=== PATIENT | female | born 1960 | race Caucasian/White ===

== ENCOUNTER 2017-12-29 20:56 | Inpatient (IN) | payer MEDICAID ==
[~2017-12-29] VITALS: Ht 149.9 cm; Wt 94.0 kg
[2017-12-29 22:21] LABS: BASOPHILS % (AUTO) 0 % (0-1); EOSINOPHILS % (AUTO) 0.1 % (0-6); HEMATOCRIT 35.4 % (35.0-45.0); HEMOGLOBIN 12.2 g/dl (12.0-16.0); LYMPHOCYTES # (AUTO) 0.6 X10'3 (1.1-4.8); LYMPHOCYTES % (AUTO) 3.9 % (21-51); MEAN CORPUSCULAR HEMOGLOBIN 29.3 PG (27.0-31.0); MEAN CORPUSCULAR HGB CONC 34.6 % (33.0-36.5); MEAN CORPUSCULAR VOLUME 84.8 FL (78-98); MEAN PLATELET VOLUME 7.9 FL (7.4-10.4); MONOCYTES # (AUTO) 0.4 X10'3 (0-0.9); MONOCYTES % (AUTO) 2.2 % (2-12); NEUTROPHILS # (AUTO) 15.4 X10'3 (1.8-7.7); NEUTROPHILS % (AUTO) 93.8 % (42-75); PLATELET COUNT 247 X10'3 (140-440); RED BLOOD COUNT 4.17 X10'6 (4.20-5.60); RED CELL DISTRIBUTION WIDTH 18.7 % (11.5-14.5); WHITE BLOOD COUNT 16.4 X10'3 (4.5-11.0)
[2017-12-29 22:31] LABS: INR 1.2 INR; PARTIAL THROMBOPLASTIN TIME 25 SECONDS (22-32); PROTHROMBIN TIME 11.9 SECONDS (9.0-12.0)
[2017-12-29 22:37] LABS: ALANINE AMINOTRANSFERASE 54 U/L (12-78); ALBUMIN/GLOBULIN RATIO 0.9 (1.1-1.5); ALKALINE PHOSPHATASE 185 IU/L (46-116); ANION GAP 7 (8-16); ASPARTATE AMINO TRANSFERASE 73 U/L (10-37); BLOOD UREA NITROGEN 13 MG/DL (7-18); BUN/CREATININE RATIO 11.9 (6.6-38.0); CHLORIDE 109 MMOL/L (99-107); CREATININE 1.09 MG/DL (0.40-0.90); GLUCOSE 147 MG/DL (70-104); SODIUM 140 MMOL/L (135-145); TOTAL CARBON DIOXIDE 24.4 MMOL/L (24-32); TOTAL PROTEIN 6.5 G/DL (6.4-8.2); eGFR 52 ML/MIN
[2017-12-29] MEDS: potassium 10mEq/100ml NS w/LIDOcaine (10mg/bag) IV SCH (23:07)
[2017-12-30] MEDS: potassium 10mEq/100ml NS w/LIDOcaine (10mg/bag) IV SCH (00:12)
[2017-12-30 00:42] LABS: CLARITY,URINE CLEAR (Clear); COLOR,URINE YELLOW (Yellow); GLUCOSE, URINE NEGATIVE (Neg); KETONES,URINE NEGATIVE (Neg); LEUKOCYTE ESTERASE ,URINE TRACE (Neg); NITRITES, URINE NEGATIVE (Neg); OCCULT BLOOD,URINE NEGATIVE (Neg); PH,URINE 5.5 (4.8-8.0); PROTEIN,URINE NEGATIVE (Neg)
[2017-12-30 00:48] LABS: UA COLLECTION TYPE CLN CATCH MIDSTREAM
[2017-12-30 00:49] LABS: BACTERIA,URINE 2+ /HPF (Neg); RBC,URINE NONE SEEN /HPF (0-2); SQUAMOUS EPITHELIAL CELL,UR FEW /LPF (FEW); WBC,URINE 0-4 /HPF (0-4)
[2017-12-30] MEDS ORDERED: enoxaparin 100mg/ml syringe SUBCUT ONE (01:45)
[2017-12-30] MEDS ORDERED: vancomycin/NS 1 GM ADD-VANTAGE 250 ML IV ONE (01:45)
[2017-12-30] MEDS ORDERED: potassium Cl 40MEQ/NS 500ml 500 ML IV PRN ×2 (01:50)
[2017-12-30] MEDS ORDERED: mag hydrox/Alum hydrox/simeth 30ml oral suspension PO PRN (01:50)
[2017-12-30] MEDS ORDERED: potassium Cl 20 mEq SR tablet PO PRN (01:50)
[2017-12-30] MEDS ORDERED: magnesium hydroxide 30ml (MOM) UD suspension PO PRN (01:50)
[2017-12-30] MEDS ORDERED: acetaminophen 325mg tablet PO PRN ×2 (01:50)
[2017-12-30] MEDS ORDERED: LISI-600 PO (01:53)
[2017-12-30] MEDS ORDERED: POTA20PA3 PO (01:53)
[2017-12-30] MEDS ORDERED: ATOR10TA87 PO (01:53)
[2017-12-30] MEDS ORDERED: DILTIA PO (01:53)
[2017-12-30] MEDS ORDERED: WARF5TAB PO (01:53)
[2017-12-30] MEDS ORDERED: ENOX100S3 SQ (01:53)
[2017-12-30] MEDS ORDERED: SILV50CR31 TP (01:53)
[2017-12-30] MEDS ORDERED: FURO-150 PO (01:53)
[2017-12-30] MEDS ORDERED: INSU100C10 SQ (01:53)
[2017-12-30] MEDS ORDERED: MESSAGE TO PHARMACY PO ONE (02:00)
[2017-12-30] MEDS ORDERED: dextrose 50%-water 50ml dispensing syringe IV PRN ×2 (02:00)
[2017-12-30] MEDS ORDERED: dextrose ORAL solution 15 GM/59 ML bottle PO PRN ×2 (02:00)
[2017-12-30] MEDS ORDERED: glucagon, human recombinant 1mg kit SUBCUT PRN (02:00)
[2017-12-30] MEDS ORDERED: insulin Lispro (HumaLOG) vial - multi-dose SQ SCH (02:00)
[2017-12-30] MEDS ORDERED: COU4T PO (02:30)
[2017-12-30] MEDS ORDERED: ASPI-1265 PO (02:30)
[2017-12-30] MEDS ORDERED: INSU100V5 IJ (02:31)
[2017-12-30] MEDS: normal saline 1000ml 1,000 ML IV SCH ×2 (02:48→16:26)
[2017-12-30] MEDS: piperacillin/tazo 3.375gm/50ml 50 ML IV SCH ×4 (02:48→20:13)
[2017-12-30 03:20] VITALS: BP 119/71
[2017-12-30] MEDS: ipratropium/albuterol 3ml nebule NEB PRN ×2 (03:37→09:49)
[2017-12-30 04:41] LABS: MAGNESIUM 1.9 MG/DL (1.5-2.4); POTASSIUM 3.4 MMOL/L (3.5-5.1)
[2017-12-30] MEDS: morphine 4 MG/ML inj SYRINge IV PRN ×2 (05:15→23:30)
[2017-12-30 06:00] VITALS: BP 97/52
[2017-12-30] MEDS: ondansetron/PF 4mg/2ml inj IV PRN (06:55)
[2017-12-30] MEDS: furosemide 20MG tablet PO SCH (08:00)
[2017-12-30] MEDS: [UNRECOGNIZED DRUG - OTHER] IV SCH (08:28)
[2017-12-30] MEDS: aspirin 81mg tab.chew PO SCH (08:47)
[2017-12-30] MEDS: potassium Cl 20 mEq SR tablet PO SCH (08:47)
[2017-12-30] MEDS: potassium Cl 20 mEq SR tablet PO PRN ×3 (08:47→20:13)
[2017-12-30 09:24] VITALS: BP 91/37
[2017-12-30 10:00] VITALS: BP 92/56
[2017-12-30] MEDS ORDERED: TREP1VIA (15:26)
[2017-12-30] MEDS: vancomycin inj 1,250 MG in normal saline 250ml IV soln 250 ML IV SCH (16:26)
[2017-12-30] MEDS ORDERED: [UNRECOGNIZED DRUG - CODE] IV (16:27)
[2017-12-30 18:00] VITALS: BP 128/83
[2017-12-30] MEDS: lactobacillus rhamnosus 10,000 MMU CELLS/CAPSULE PO SCH (20:13)
[2017-12-30] MEDS: atorvastatin 10mg tablet PO SCH (20:14)
[2017-12-30] MEDS: nystatin 15 GM powder TP SCH (20:25)
[2017-12-30] MEDS: insulin glargine (Lantus) pen - multi-dose SQ SCH (21:00)
[2017-12-30] MEDS ORDERED: warfarin 5mg tablet PO ONE (21:00)
[2017-12-30 22:00] VITALS: BP 130/79
[2017-12-31] MEDS: piperacillin/tazo 3.375gm/50ml 50 ML IV SCH ×4 (02:01→20:06)
[2017-12-31] MEDS: vancomycin inj 1,250 MG in normal saline 250ml IV soln 250 ML IV SCH ×2 (03:09→15:21)
[2017-12-31] MEDS: normal saline 1000ml 1,000 ML IV SCH ×2 (04:26→10:45)
[2017-12-31] MEDS: ipratropium/albuterol 3ml nebule NEB PRN (04:36)
[2017-12-31 05:07] LABS: BASOPHILS % (AUTO) 0.1 % (0-1); EOSINOPHILS # (AUTO) 0.2 X10'3 (0-0.9); EOSINOPHILS % (AUTO) 2.4 % (0-6); HEMATOCRIT 32.4 % (35.0-45.0); HEMOGLOBIN 10.9 g/dl (12.0-16.0); LYMPHOCYTES % (AUTO) 21.6 % (21-51); MEAN CORPUSCULAR HEMOGLOBIN 29.4 PG (27.0-31.0); MEAN CORPUSCULAR HGB CONC 33.5 % (33.0-36.5); MEAN CORPUSCULAR VOLUME 87.6 FL (78-98); MEAN PLATELET VOLUME 8.1 FL (7.4-10.4); MONOCYTES # (AUTO) 0.6 X10'3 (0-0.9); MONOCYTES % (AUTO) 5.9 % (2-12); NEUTROPHILS # (AUTO) 6.6 X10'3 (1.8-7.7); PLATELET COUNT 207 X10'3 (140-440); RED CELL DISTRIBUTION WIDTH 19.7 % (11.5-14.5); WHITE BLOOD COUNT 9.5 X10'3 (4.5-11.0)
[2017-12-31 05:11] LABS: INR 1.2 INR; PROTHROMBIN TIME 12.3 SECONDS (9.0-12.0)
[2017-12-31 05:12] LABS: ALBUMIN 2.7 G/DL (3.4-5.0); ANION GAP 4 (8-16); BLOOD UREA NITROGEN 10 MG/DL (7-18); BUN/CREATININE RATIO 10.8 (6.6-38.0); CALCIUM 8.5 MG/DL (8.5-10.1); CHLORIDE 108 MMOL/L (99-107); CREATININE 0.93 MG/DL (0.40-0.90); GLUCOSE 115 MG/DL (70-104); MAGNESIUM 1.9 MG/DL (1.5-2.4); POTASSIUM 4.2 MMOL/L (3.5-5.1); SODIUM 138 MMOL/L (135-145); TOTAL CARBON DIOXIDE 25.8 MMOL/L (24-32); eGFR 62 ML/MIN
[2017-12-31 07:00] VITALS: BP 115/76
[2017-12-31] MEDS: aspirin 81mg tab.chew PO SCH (07:24)
[2017-12-31] MEDS: lactobacillus rhamnosus 10,000 MMU CELLS/CAPSULE PO SCH ×2 (07:24→20:06)
[2017-12-31] MEDS: furosemide 20MG tablet PO SCH (07:24)
[2017-12-31] MEDS: nystatin 15 GM powder TP SCH ×3 (07:25→21:00)
[2017-12-31] MEDS: potassium Cl 20 mEq SR tablet PO SCH (07:25)
[2017-12-31 10:00] VITALS: BP 88/53
[2017-12-31] MEDS: [UNRECOGNIZED DRUG - OTHER] IV SCH (10:38)
[2017-12-31] MEDS: ondansetron/PF 4mg/2ml inj IV PRN (14:39)
[2017-12-31 18:00] VITALS: BP 103/62
[2017-12-31] MEDS: atorvastatin 10mg tablet PO SCH (20:06)
[2017-12-31] MEDS: morphine 4 MG/ML inj SYRINge IV PRN (20:07)
[2017-12-31] MEDS ORDERED: warfarin 7.5mg tablet PO ONE (21:00)
[2017-12-31] MEDS: insulin glargine (Lantus) pen - multi-dose SQ SCH (21:00)
[2017-12-31 22:00] VITALS: BP 110/74
[2018-01-01] MEDS: Melatonin 3mg tablet PO PRN (00:36)
[2018-01-01] MEDS: piperacillin/tazo 3.375gm/50ml 50 ML IV SCH ×4 (02:19→20:40)
[2018-01-01] MEDS ORDERED: VANCOMYCIN LEVEL IV NR (02:30)
[2018-01-01] MEDS: vancomycin inj 1,250 MG in normal saline 250ml IV soln 250 ML IV SCH ×2 (03:13→16:32)
[2018-01-01] MEDS: normal saline 1000ml 1,000 ML IV SCH ×2 (03:17→20:50)
[2018-01-01 04:44] LABS: BASOPHILS % (AUTO) 0.1 % (0-1); EOSINOPHILS # (AUTO) 0.2 X10'3 (0-0.9); EOSINOPHILS % (AUTO) 1.8 % (0-6); HEMATOCRIT 32.8 % (35.0-45.0); HEMOGLOBIN 10.9 g/dl (12.0-16.0); LYMPHOCYTES # (AUTO) 1.6 X10'3 (1.1-4.8); LYMPHOCYTES % (AUTO) 17.1 % (21-51); MEAN CORPUSCULAR HEMOGLOBIN 29.1 PG (27.0-31.0); MEAN CORPUSCULAR HGB CONC 33.3 % (33.0-36.5); MEAN CORPUSCULAR VOLUME 87.3 FL (78-98); MEAN PLATELET VOLUME 8.5 FL (7.4-10.4); MONOCYTES # (AUTO) 0.3 X10'3 (0-0.9); MONOCYTES % (AUTO) 3.8 % (2-12); NEUTROPHILS # (AUTO) 7.1 X10'3 (1.8-7.7); NEUTROPHILS % (AUTO) 77.2 % (42-75); PLATELET COUNT 207 X10'3 (140-440); RED BLOOD COUNT 3.76 X10'6 (4.20-5.60); RED CELL DISTRIBUTION WIDTH 19.5 % (11.5-14.5); WHITE BLOOD COUNT 9.2 X10'3 (4.5-11.0)
[2018-01-01 05:04] LABS: INR 1.1 INR; PROTHROMBIN TIME 11.7 SECONDS (9.0-12.0)
[2018-01-01 05:15] LABS: ALBUMIN 2.8 G/DL (3.4-5.0); ANION GAP 5 (8-16); BLOOD UREA NITROGEN 12 MG/DL (7-18); BUN/CREATININE RATIO 11.4 (6.6-38.0); CALCIUM 8.6 MG/DL (8.5-10.1); CHLORIDE 106 MMOL/L (99-107); CREATININE 1.05 MG/DL (0.40-0.90); GLUCOSE 96 MG/DL (70-104); MAGNESIUM 1.8 MG/DL (1.5-2.4); POTASSIUM 3.9 MMOL/L (3.5-5.1); SODIUM 138 MMOL/L (135-145); TOTAL CARBON DIOXIDE 27.3 MMOL/L (24-32); VANCOMYCIN,TROUGH 18.9 UG/ML (6.0-14.0); eGFR 54 ML/MIN
[2018-01-01 06:30] VITALS: BP 97/64
[2018-01-01] MEDS: nystatin 15 GM powder TP SCH ×3 (08:00→20:40)
[2018-01-01] MEDS: furosemide 20MG tablet PO SCH (08:00)
[2018-01-01] MEDS: lactobacillus rhamnosus 10,000 MMU CELLS/CAPSULE PO SCH ×2 (08:28→20:40)
[2018-01-01] MEDS: aspirin 81mg tab.chew PO SCH (08:28)
[2018-01-01] MEDS: potassium Cl 20 mEq SR tablet PO SCH (08:28)
[2018-01-01] MEDS: [UNRECOGNIZED DRUG - OTHER] IV SCH (08:28)
[2018-01-01 10:24] VITALS: BP 93/58
[2018-01-01] MEDS: morphine 4 MG/ML inj SYRINge IV PRN ×2 (16:32→20:41)
[2018-01-01 18:49] VITALS: BP 103/66
[2018-01-01] MEDS: atorvastatin 10mg tablet PO SCH (20:39)
[2018-01-01] MEDS: insulin glargine (Lantus) pen - multi-dose SQ SCH (20:50)
[2018-01-01] MEDS ORDERED: warfarin 3mg tablet PO ONE (21:00)
[2018-01-01 23:30] VITALS: BP 96/56
[2018-01-02] MEDS: morphine 4 MG/ML inj SYRINge IV PRN ×3 (01:04→19:16)
[2018-01-02] MEDS: piperacillin/tazo 3.375gm/50ml 50 ML IV SCH ×4 (01:05→21:23)
[2018-01-02] MEDS: vancomycin inj 1,250 MG in normal saline 250ml IV soln 250 ML IV SCH ×2 (02:57→17:34)
[2018-01-02 05:30] VITALS: BP 90/52
[2018-01-02 05:56] LABS: BASOPHILS % (AUTO) 0.4 % (0-1); EOSINOPHILS # (AUTO) 0.2 X10'3 (0-0.9); EOSINOPHILS % (AUTO) 2.7 % (0-6); HEMATOCRIT 32.5 % (35.0-45.0); HEMOGLOBIN 10.9 g/dl (12.0-16.0); LYMPHOCYTES # (AUTO) 1.9 X10'3 (1.1-4.8); LYMPHOCYTES % (AUTO) 28.2 % (21-51); MEAN CORPUSCULAR HGB CONC 33.7 % (33.0-36.5); MEAN CORPUSCULAR VOLUME 86.3 FL (78-98); MEAN PLATELET VOLUME 8.6 FL (7.4-10.4); MONOCYTES # (AUTO) 0.2 X10'3 (0-0.9); MONOCYTES % (AUTO) 3.7 % (2-12); NEUTROPHILS # (AUTO) 4.3 X10'3 (1.8-7.7); PLATELET COUNT 179 X10'3 (140-440); RED BLOOD COUNT 3.76 X10'6 (4.20-5.60); RED CELL DISTRIBUTION WIDTH 19.1 % (11.5-14.5); WHITE BLOOD COUNT 6.6 X10'3 (4.5-11.0)
[2018-01-02 05:59] LABS: INR 1.3 INR; PROTHROMBIN TIME 13.1 SECONDS (9.0-12.0)
[2018-01-02 06:06] LABS: ALBUMIN 2.8 G/DL (3.4-5.0); ANION GAP 6 (8-16); BLOOD UREA NITROGEN 9 MG/DL (7-18); BUN/CREATININE RATIO 10.1 (6.6-38.0); CALCIUM 8.6 MG/DL (8.5-10.1); CHLORIDE 107 MMOL/L (99-107); CREATININE 0.89 MG/DL (0.40-0.90); GLUCOSE 94 MG/DL (70-104); MAGNESIUM 1.9 MG/DL (1.5-2.4); SODIUM 139 MMOL/L (135-145); TOTAL CARBON DIOXIDE 26.1 MMOL/L (24-32); eGFR 66 ML/MIN
[2018-01-02] MEDS: [UNRECOGNIZED DRUG - OTHER] IV SCH (08:00)
[2018-01-02] MEDS: furosemide 20MG tablet PO SCH (08:04)
[2018-01-02] MEDS: nystatin 15 GM powder TP SCH ×3 (08:04→21:36)
[2018-01-02] MEDS: lactobacillus rhamnosus 10,000 MMU CELLS/CAPSULE PO SCH ×2 (08:04→21:23)
[2018-01-02] MEDS: potassium Cl 20 mEq SR tablet PO SCH (08:04)
[2018-01-02] MEDS: aspirin 81mg tab.chew PO SCH (08:04)
[2018-01-02 10:30] VITALS: BP 99/61
[2018-01-02 18:00] VITALS: BP 119/77
[2018-01-02] MEDS: insulin glargine (Lantus) pen - multi-dose SQ SCH (21:00)
[2018-01-02] MEDS ORDERED: warfarin 5mg tablet PO ONE (21:00)
[2018-01-02] MEDS: atorvastatin 10mg tablet PO SCH (21:22)
[2018-01-02] MEDS: Melatonin 3mg tablet PO PRN (21:38)
[2018-01-02 22:00] VITALS: BP 103/60
[2018-01-03] MEDS: morphine 4 MG/ML inj SYRINge IV PRN ×2 (01:42→21:09)
[2018-01-03] MEDS: piperacillin/tazo 3.375gm/50ml 50 ML IV SCH ×4 (01:42→21:08)
[2018-01-03] MEDS: vancomycin inj 1,250 MG in normal saline 250ml IV soln 250 ML IV SCH ×2 (02:36→17:04)
[2018-01-03 06:10] LABS: BASOPHILS % (AUTO) 0.3 % (0-1); EOSINOPHILS # (AUTO) 0.2 X10'3 (0-0.9); EOSINOPHILS % (AUTO) 3.2 % (0-6); HEMATOCRIT 32.2 % (35.0-45.0); HEMOGLOBIN 10.7 g/dl (12.0-16.0); LYMPHOCYTES # (AUTO) 1.9 X10'3 (1.1-4.8); LYMPHOCYTES % (AUTO) 26.8 % (21-51); MEAN CORPUSCULAR HEMOGLOBIN 28.8 PG (27.0-31.0); MEAN CORPUSCULAR HGB CONC 33.2 % (33.0-36.5); MEAN PLATELET VOLUME 8.1 FL (7.4-10.4); MONOCYTES # (AUTO) 0.6 X10'3 (0-0.9); MONOCYTES % (AUTO) 8.1 % (2-12); NEUTROPHILS # (AUTO) 4.3 X10'3 (1.8-7.7); NEUTROPHILS % (AUTO) 61.6 % (42-75); PLATELET COUNT 193 X10'3 (140-440); RED CELL DISTRIBUTION WIDTH 18.9 % (11.5-14.5)
[2018-01-03 06:18] LABS: INR 1.4 INR; PROTHROMBIN TIME 14.4 SECONDS (9.0-12.0)
[2018-01-03 06:24] LABS: ALBUMIN 2.6 G/DL (3.4-5.0); ANION GAP 7 (8-16); BLOOD UREA NITROGEN 13 MG/DL (7-18); CALCIUM 8.9 MG/DL (8.5-10.1); CHLORIDE 107 MMOL/L (99-107); CREATININE 0.93 MG/DL (0.40-0.90); GLUCOSE 101 MG/DL (70-104); MAGNESIUM 1.9 MG/DL (1.5-2.4); POTASSIUM 3.7 MMOL/L (3.5-5.1); SODIUM 142 MMOL/L (135-145); TOTAL CARBON DIOXIDE 28.5 MMOL/L (24-32); eGFR 62 ML/MIN
[2018-01-03] MEDS: nystatin 15 GM powder TP SCH ×3 (08:00→21:19)
[2018-01-03] MEDS: [UNRECOGNIZED DRUG - OTHER] IV SCH (08:00)
[2018-01-03] MEDS: lactobacillus rhamnosus 10,000 MMU CELLS/CAPSULE PO SCH ×2 (09:54→21:09)
[2018-01-03] MEDS: furosemide 20MG tablet PO SCH (09:54)
[2018-01-03] MEDS: aspirin 81mg tab.chew PO SCH (09:54)
[2018-01-03] MEDS: potassium Cl 20 mEq SR tablet PO SCH (09:55)
[2018-01-03 18:00] VITALS: BP 134/85
[2018-01-03] MEDS ORDERED: warfarin 10mg tablet PO ONE (21:00)
[2018-01-03] MEDS: insulin glargine (Lantus) pen - multi-dose SQ SCH (21:00)
[2018-01-03] MEDS: atorvastatin 10mg tablet PO SCH (21:10)
[2018-01-03 22:00] VITALS: BP 136/85
[2018-01-03] MEDS: Melatonin 3mg tablet PO PRN (23:35)
[2018-01-04] MEDS: piperacillin/tazo 3.375gm/50ml 50 ML IV SCH ×2 (02:23→07:46)
[2018-01-04] MEDS: vancomycin inj 1,250 MG in normal saline 250ml IV soln 250 ML IV SCH (03:06)
[2018-01-04] MEDS: morphine 4 MG/ML inj SYRINge IV PRN (04:21)
[2018-01-04 05:00] VITALS: BP 108/53
[2018-01-04 06:49] LABS: BASOPHILS % (AUTO) 0.3 % (0-1); EOSINOPHILS # (AUTO) 0.3 X10'3 (0-0.9); EOSINOPHILS % (AUTO) 3.8 % (0-6); HEMATOCRIT 36.8 % (35.0-45.0); HEMOGLOBIN 12.4 g/dl (12.0-16.0); LYMPHOCYTES # (AUTO) 1.7 X10'3 (1.1-4.8); LYMPHOCYTES % (AUTO) 24.3 % (21-51); MEAN CORPUSCULAR HEMOGLOBIN 28.9 PG (27.0-31.0); MEAN CORPUSCULAR HGB CONC 33.6 % (33.0-36.5); MEAN CORPUSCULAR VOLUME 85.9 FL (78-98); MONOCYTES # (AUTO) 0.4 X10'3 (0-0.9); NEUTROPHILS # (AUTO) 4.6 X10'3 (1.8-7.7); NEUTROPHILS % (AUTO) 65.6 % (42-75); PLATELET COUNT 227 X10'3 (140-440); RED BLOOD COUNT 4.28 X10'6 (4.20-5.60); RED CELL DISTRIBUTION WIDTH 19.2 % (11.5-14.5); WHITE BLOOD COUNT 7.1 X10'3 (4.5-11.0)
[2018-01-04 06:51] LABS: INR 1.4 INR; PROTHROMBIN TIME 14.5 SECONDS (9.0-12.0)
[2018-01-04 07:08] LABS: ANION GAP 8 (8-16); BLOOD UREA NITROGEN 14 MG/DL (7-18); BUN/CREATININE RATIO 14.3 (6.6-38.0); CALCIUM 9.1 MG/DL (8.5-10.1); CHLORIDE 105 MMOL/L (99-107); CREATININE 0.98 MG/DL (0.40-0.90); GLUCOSE 102 MG/DL (70-104); POTASSIUM 3.9 MMOL/L (3.5-5.1); SODIUM 142 MMOL/L (135-145); TOTAL CARBON DIOXIDE 28.7 MMOL/L (24-32); eGFR 59 ML/MIN
[2018-01-04] MEDS: aspirin 81mg tab.chew PO SCH (07:46)
[2018-01-04] MEDS: potassium Cl 20 mEq SR tablet PO SCH (07:46)
[2018-01-04] MEDS: lactobacillus rhamnosus 10,000 MMU CELLS/CAPSULE PO SCH (07:46)
[2018-01-04] MEDS: nystatin 15 GM powder TP SCH ×2 (07:46→13:21)
[2018-01-04] MEDS: furosemide 20MG tablet PO SCH ×3 (07:46→07:49)
[2018-01-04 07:52] LABS: ANISOCYTOSIS 2+; PLATELET ESTIMATE NORMAL
[2018-01-04] MEDS: [UNRECOGNIZED DRUG - OTHER] IV SCH (08:00)
[2018-01-04] MEDS ORDERED: LEVO500T2 PO (08:48)
[2018-01-04] MEDS ORDERED: warfarin 10mg tablet PO ONE (21:00)
== END 2018-01-04 15:00 | disposition home or self-care (01) | DRG 720 ==
LOC: ER 20:57 → ED HOLD 12-30 01:46 → CMPBEDREQ 12-30 03:28 → ORTHO 4S 12-30 03:28
PROVIDERS: ADMIT Internal Medicine; ATTEND Family Medicine
DX: A41.9 Sepsis, unspecified organism (principal); J18.9 Pneumonia, unspecified organism; I27.21 Secondary pulmonary arterial hypertension; I13.0 Hypertensive heart and chronic kidney disease with heart failure and stage 1 through stage 4 chronic kidney disease, or unspecified chronic kidney disease; E11.22 Type 2 diabetes mellitus with diabetic chronic kidney disease; I50.9 Heart failure, unspecified; Z68.41 Body mass index [BMI] 40.0-44.9, adult; D64.9 Anemia, unspecified; M19.90 Unspecified osteoarthritis, unspecified site; Z96.643 Presence of artificial hip joint, bilateral; E87.6 Hypokalemia; N18.9 Chronic kidney disease, unspecified; Z79.01 Long term (current) use of anticoagulants; Z86.73 Personal history of transient ischemic attack (TIA), and cerebral infarction without residual deficits; Z79.899 Other long term (current) drug therapy; Z79.82 Long term (current) use of aspirin; Z79.4 Long term (current) use of insulin
CPT/HCPCS: 36415; 71045; 80048; 80053; 80202; 81001; 82948; 83036; 83605; 83735; 84132; 84145; 84484; 85025; 85610; 85730; 87040; 87070; 87088; 93005; 94640; 94760; 96365; 99285; A4333; A6258; J1650; J1815; J2270; J2405; J2543; J3370; J3480; J7030